=== PATIENT | male | born 1985 | race Caucasian/White ===

== ENCOUNTER 2017-10-31 13:34 | Inpatient (IN) | payer SELFPAY ==
[~2017-10-31] VITALS: Ht 188 cm; Wt 70.2 kg
[2017-10-31] VITALS (7 sets, daily range): BP systolic 105–124; BP diastolic 58–78; PULSE 79–209; RESP 16–20; TEMP 97.4–97.7; O2SAT 95–100
[2017-10-31] MEDS ORDERED: SODIUM CHLOR 0.9% 1000 ML INJ 1,000 ML IV ONE (14:00)
[2017-10-31] MEDS ORDERED: MORPHINE SULFATE 4 MG/ML INJ IV PUSH ONE (14:00)
[2017-10-31 14:40] LABS: AUTOMATED NEUTROPHIL # 17.2 TH/MM3 (1.8-7.7); BASOPHIL % 0.2 % (0.0-2.0); EOSINOPHIL % 0.1 % (0.0-4.0); HEMATOCRIT 41.9 % (39.0-51.0); HEMOGLOBIN 14.3 GM/DL (13.0-17.0); LYMPH % 7.6 % (9.0-44.0); LYMPHOCYTE # 1.5 TH/MM3 (1.0-4.8); MEAN CELL VOLUME 95.7 FL (80.0-100.0); MEAN CORPUSCULAR HEMOGLOBIN 32.7 PG (27.0-34.0); MEAN CORPUSCULAR HGB CONC 34.2 % (32.0-36.0); MEAN PLATELET VOLUME 8.8 FL (7.0-11.0); MONO % 3.9 % (0.0-8.0); MONOCYTE # 0.8 TH/MM3 (0-0.9); NEUT % 88.2 % (16.0-70.0); PLATELET COUNT 298 TH/MM3 (150-450); RED BLOOD COUNT 4.38 MIL/MM3 (4.50-5.90); RED CELL DISTRIBUTION WIDTH 13.4 % (11.6-17.2); WHITE BLOOD COUNT 19.5 TH/MM3 (4.0-11.0)
[2017-10-31 14:54] LABS: INTERNATIONAL NORMALIZED RATIO 1.3 RATIO
[2017-10-31 14:55] LABS: ALBUMIN 3.9 GM/DL (3.4-5.0); ALT (GPT) 102 U/L (12-78); AST (GOT) 150 U/L (15-37); BICARBONATE 26.7 MEQ/L (21.0-32.0); BLOOD UREA NITROGEN 13 MG/DL (7-18); CALCIUM 8.7 MG/DL (8.5-10.1); CHLORIDE 106 MEQ/L (98-107); CREATININE 1.28 MG/DL (0.60-1.30); GLOMERULAR FILTRATION RATE 66 ML/MIN (>89); GLUCOSE,RANDOM 142 MG/DL (74-106); SODIUM (NA) 142 MEQ/L (136-145)
[2017-10-31 14:57] LABS: ALKALINE PHOSPHATASE 97 U/L (45-117); TOTAL BILIRUBIN ADULT 0.6 MG/DL (0.2-1.0); TOTAL PROTEIN 7.5 GM/DL (6.4-8.2)
[2017-10-31] MEDS ORDERED: MIDAZOLAM HCL 5 MG/ML VIAL (1 ML) ONE (15:09)
[2017-10-31] MEDS ORDERED: HYDROmorphone HCL PF 0.5 MG/0.5 ML SYRINGE ONE ×2 (15:10→15:11)
[2017-10-31] MEDS ORDERED: MIDAZOLAM HCL 5 MG/5 ML VIAL IV PUSH ONE (15:15)
[2017-10-31] MEDS ORDERED: HYDROmorphone HCL PF 1 MG/ML VIAL IV PUSH ONE (15:15)
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
[2017-10-31] MEDS ORDERED: LIDOCAINE HCL 1% PF 30 ML VIAL ONE (15:25)
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
[2017-10-31] MEDS ORDERED: IOHEXOL 350 MG/ML 10 ML VIAL (for RAD DIAG) IVCONTRAST ONE (16:20)
[2017-10-31] MEDS ORDERED: ENALAPRILAT 1.25 MG/ML VIAL IV PUSH PRN (16:30)
[2017-10-31] MEDS ORDERED: ACETAMINOPHEN 325 MG TAB PO PRN (16:30)
[2017-10-31] MEDS ORDERED: ONDANSETRON HCL 4 MG/2 ML VIAL IV PUSH PRN (16:30)
[2017-10-31] MEDS ORDERED: NURSING INFORMATION XX SCH (16:30)
[2017-10-31] MEDS ORDERED: MAGNESIUM HYDROXIDE SUSP 30 ML CUP PO PRN (16:30)
[2017-10-31] MEDS ORDERED: SODIUM CHLORIDE 0.9% FLUSH 10 ML FLUSH IV FLUSH PRN (16:30)
[2017-10-31] MEDS ORDERED: CHLORHEXIDINE GLUCONATE 2 % 1 PACK (2 CLOTHS) TOP PRN (16:30)
--- NOTE | 2017-10-31 16:32 | RADRPT ---
EXAM DATE: 10/31/2017 4:11 PM EDT AGE/SEX: 32 years / Male INDICATIONS: Post chest tube placement CLINICAL DATA: This is the patient's subsequent encounter. Patient reports that signs and symptoms h ave been present for 1 day and indicates a pain score of Nonresponsive. MEDICAL/SURGICAL HISTORY: . Non-responsive. COMPARISON: [facility] [place], CHEST SINGLE AP, 10/31/2017. [facility] [place], CT THORAX W CONTRAST, 10/31/2017. . FINDINGS: A left-sided chest tube has been placed and is in good position. There is a miniscule resi dual left-sided pneumothorax measuring 3 mm bilaterally. Left basilar atelectasis and/or infiltrate i s noted. CONCLUSION: 1. Good position of the left-sided chest tube with miniscule residual pneumothorax measuring 3 [address]ally on the left. 2. Left basilar atelectasis and/or infiltrate. Electronically signed by: Lang Cazares MD 10/31/2017 4:31 PM EDT
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
[2017-10-31] MEDS ORDERED: LIDOCAINE HCL 1% 50 ML VIAL INFIL ONE (17:45)
[2017-10-31] MEDS: DIAZEPAM 2 MG TAB PO SCH (17:48)
[2017-10-31] MEDS: IBUPROFEN 800 MG TAB PO SCH (17:49)
[2017-10-31] MEDS: ENOXAPARIN SODIUM 30 MG/0.3 ML SYRINGE SQ SCH (19:29)
[2017-10-31] MEDS: DOCUSATE SODIUM 100 MG CAP PO SCH (19:31)
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
[2017-11-01] VITALS (7 sets, daily range): BP systolic 108–127; BP diastolic 54–79; PULSE 68–85; RESP 18; TEMP 98.2–99.2; O2SAT 99–100
[2017-11-01] MEDS: IBUPROFEN 800 MG TAB PO SCH ×5 (00:25→23:48)
[2017-11-01] MEDS: DIAZEPAM 2 MG TAB PO SCH ×4 (00:25→23:48)
[2017-11-01] MEDS: CHLORHEXIDINE GLUCONATE 2 % 1 PACK (2 CLOTHS) TOP SCH ×2 (02:01→19:39)
--- NOTE | 2017-11-01 06:43 | RADRPT ---
EXAM DATE: 11/01/2017 6:32 AM EDT AGE/SEX: 32 years / Male INDICATIONS: Short of breath, follow up traumatic pneumothorax and chest tube CLINICAL DATA: This is the patient's subsequent encounter. Patient reports that signs and symptoms h ave been present for 3 days and indicates a pain score of 8/10. MEDICAL/SURGICAL HISTORY: . pneumothoraxrib fracturesprior clavicle fractue None. [place] [facility] [place] . FINDINGS: The left chest tube remains in place. No definite pneumothorax is seen. There is mild atelectasis in the left lung base. The right lung is grossly clear. The heart size is stable. No definite pleural ef fusions. CONCLUSION: Left-sided chest tube in place with no definite pneumothorax on today's study. Electronically signed by: Reece Alonso MD 11/01/2017 6:41 AM EDT
[2017-11-01] MEDS ORDERED: MORPHINE SULFATE 4 MG/ML INJ IV PUSH PRN (07:30)
[2017-11-01] MEDS: ENOXAPARIN SODIUM 30 MG/0.3 ML SYRINGE SQ SCH ×2 (10:11→19:45)
[2017-11-01] MEDS: DOCUSATE SODIUM 50 MG/SENNA 8.6 MG TAB PO SCH ×2 (10:12→19:45)
[2017-11-01] MEDS: DOCUSATE SODIUM 100 MG CAP PO SCH ×2 (10:12→19:45)
[2017-11-01 11:23] LABS: AUTOMATED NEUTROPHIL # 6.3 TH/MM3 (1.8-7.7); BASOPHIL % 0.3 % (0.0-2.0); EOSINOPHIL % 0.4 % (0.0-4.0); HEMATOCRIT 37.4 % (39.0-51.0); HEMOGLOBIN 12.7 GM/DL (13.0-17.0); MEAN CELL VOLUME 97.4 FL (80.0-100.0); MEAN CORPUSCULAR HGB CONC 33.9 % (32.0-36.0); MEAN PLATELET VOLUME 8.7 FL (7.0-11.0); MONO % 8.9 % (0.0-8.0); MONOCYTE # 0.7 TH/MM3 (0-0.9); NEUT % 78.4 % (16.0-70.0); PLATELET COUNT 190 TH/MM3 (150-450); RED BLOOD COUNT 3.84 MIL/MM3 (4.50-5.90); RED CELL DISTRIBUTION WIDTH 13.6 % (11.6-17.2); WHITE BLOOD COUNT 8.1 TH/MM3 (4.0-11.0)
[2017-11-01 11:53] LABS: CALCIUM 8.2 MG/DL (8.5-10.1); CREATININE 0.92 MG/DL (0.60-1.30)
[2017-11-01] MEDS: RESP: ALBUTEROL 2.5 MG/IPRATROPIUM 0.5 MG NEB (SCH) NEB ×3 (12:09→19:51)
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
[2017-11-01] MEDS: BACITRACIN TOP OINT 15 GM TUBE TOP SCH ×2 (18:04→19:39)
[2017-11-02] VITALS (7 sets, daily range): BP systolic 108–134; BP diastolic 63–86; PULSE 79–92; RESP 16–18; TEMP 97.2–98.8; O2SAT 95–100
[2017-11-02] MEDS: IBUPROFEN 800 MG TAB PO SCH ×3 (06:33→17:58)
--- NOTE | 2017-11-02 06:57 | RADRPT ---
EXAM DATE: 11/02/2017 6:54 AM EDT AGE/SEX: 32 years / Male INDICATIONS: Short of breath, pain left chest, follow up left side pneumothorax and chest tube CLINICAL DATA: This is the patient's subsequent encounter. Patient reports that signs and symptoms h ave been present for 4 - 6 days and indicates a pain score of 8/10. MEDICAL/SURGICAL HISTORY: . pneumothorax . chest tube [place] [facility] [place] . FINDINGS: Left-sided chest tube is in place. No definite pneumothorax. Right lung is grossly clear. Mild atelec tasis in the left lung base. Heart size is stable. No significant pleural effusions. No significant c hanges compared to the prior study. CONCLUSION: No evidence of pneumothorax. Electronically signed by: Reece Alonso MD 11/02/2017 6:56 AM EDT
[2017-11-02] MEDS: RESP: ALBUTEROL 2.5 MG/IPRATROPIUM 0.5 MG NEB (SCH) NEB ×4 (08:55→19:15)
[2017-11-02] MEDS: DOCUSATE SODIUM 100 MG CAP PO SCH ×2 (09:05→19:40)
[2017-11-02] MEDS: DIAZEPAM 2 MG TAB PO SCH ×2 (09:05→17:58)
[2017-11-02] MEDS: ENOXAPARIN SODIUM 30 MG/0.3 ML SYRINGE SQ SCH ×2 (09:05→19:40)
[2017-11-02] MEDS: DOCUSATE SODIUM 50 MG/SENNA 8.6 MG TAB PO SCH ×2 (09:05→19:40)
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
[2017-11-02] MEDS: BACITRACIN TOP OINT 15 GM TUBE TOP SCH ×2 (17:59→19:40)
[2017-11-02] MEDS: CHLORHEXIDINE GLUCONATE 2 % 1 PACK (2 CLOTHS) TOP SCH (22:26)
[2017-11-03 00:01] VITALS: BP 134/84; PULSE 86; RESP 17; TEMP 98.2; O2SAT 98
[2017-11-03] MEDS: DIAZEPAM 2 MG TAB PO SCH ×2 (01:06→09:16)
[2017-11-03] MEDS: IBUPROFEN 800 MG TAB PO SCH ×3 (01:06→12:35)
[2017-11-03 04:00] VITALS: BP 124/84; PULSE 79; RESP 18; TEMP 97.9; O2SAT 99
--- NOTE | 2017-11-03 07:22 | RADRPT ---
EXAM DATE: 11/03/2017 7:16 AM EDT AGE/SEX: 32 years / Male INDICATIONS: Short of breath. CLINICAL DATA: This is the patient's initial encounter. Patient reports that signs and symptoms have been present for 4 - 6 days and indicates a pain score of 0/10. MEDICAL/SURGICAL HISTORY: . pneumothorax. . chest tube. [place] [facility] [place] . FINDINGS: Mild left base atelectasis again noted. Left chest tube remains in place. No perceptible pneumothorax . Right lung remains clear. Normal, stable heart size. CONCLUSION: No significant change. Chest tube and basilar atelectasis again noted on the left. No pneumothorax. Electronically signed by: Moses Tay MD 11/03/2017 7:21 AM EDT
[2017-11-03] MEDS ORDERED: PERI PO (07:40)
[2017-11-03] MEDS ORDERED: IBUP1TAB7 PO (07:40)
[2017-11-03] MEDS ORDERED: MAGN30S PO (07:40)
[2017-11-03] MEDS ORDERED: LIDO1ADH4 T-DERMAL (07:40)
[2017-11-03 08:00] VITALS: BP 124/67; PULSE 71; RESP 16; TEMP 98.3; O2SAT 99
[2017-11-03] MEDS: RESP: ALBUTEROL 2.5 MG/IPRATROPIUM 0.5 MG NEB (SCH) NEB ×3 (08:49→16:00)
[2017-11-03 08:53] VITALS: O2SAT 98
[2017-11-03] MEDS ORDERED: FAMOTIDINE 20 MG TAB PO SCH (09:00)
[2017-11-03] MEDS: DOCUSATE SODIUM 50 MG/SENNA 8.6 MG TAB PO SCH (09:00)
[2017-11-03] MEDS ORDERED: MAGNESIUM HYDROXIDE SUSP 30 ML CUP PO SCH (09:00)
[2017-11-03] MEDS ORDERED: LIDOCAINE HCL 5% PATCH T-DERMAL SCH (09:00)
[2017-11-03] MEDS: ENOXAPARIN SODIUM 30 MG/0.3 ML SYRINGE SQ SCH (09:16)
[2017-11-03] MEDS: BACITRACIN TOP OINT 15 GM TUBE TOP SCH (09:21)
[2017-11-03 12:00] VITALS: BP 126/84; PULSE 80; RESP 16; TEMP 98.1; O2SAT 98
[2017-11-03] MEDS ORDERED: PERC5TAB12 PO (12:14)
[2017-11-03] MEDS ORDERED: CYCL5TAB PO (12:14)
--- NOTE | 2017-11-03 15:37 | RADRPT ---
EXAM DATE: 11/03/2017 3:33 PM EDT AGE/SEX: 32 years / Male INDICATIONS: F/U rib fx and CT removal CLINICAL DATA: This is the patient's initial encounter. Patient reports that signs and symptoms have been present for 1 day and indicates a pain score of 0/10. MEDICAL/SURGICAL HISTORY: None. None. COMPARISON: [facility] [place]. . FINDINGS: A single AP view of the chest demonstrates the lungs to be symmetrically aerated without evidence of mass, infiltrate or effusion. Left basilar atelectasis. The cardiomediastinal contours are unremarkab le. Osseous structures are intact. No pneumothorax following left chest tube removal. CONCLUSION: No pneumothorax following chest tube removal. Left basilar atelectasis is unchanged. Electronically signed by: Chase Radford MD 11/03/2017 3:36 PM EDT
[2017-11-03 16:00] VITALS: BP 128/91; PULSE 88; RESP 16; TEMP 98.3; O2SAT 97
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
[2017-11-03] MEDS ORDERED: REMOVE OLD LIDOCAINE PATCH T-DERMAL SCH (21:00)
== END 2017-11-03 17:07 | disposition home or self-care (01) | DRG 200 ==
LOC: NEPE 13:34 → NEDA 16:20 → N06B 17:40
PROVIDERS: ADMIT Surgery; ATTEND Surgery
PROC: 0W9B30Z Drainage of Left Pleural Cavity with Drainage Device, Percutaneous Approach (ICD-10-PCS; principal; 2017-10-31)
DX: S27.0XXA Traumatic pneumothorax, initial encounter (principal); S22.42XA Multiple fractures of ribs, left side, initial encounter for closed fracture; S22.070A Wedge compression fracture of T9-T10 vertebra, initial encounter for closed fracture; S32.019A Unspecified fracture of first lumbar vertebra, initial encounter for closed fracture; S32.029A Unspecified fracture of second lumbar vertebra, initial encounter for closed fracture; S32.039A Unspecified fracture of third lumbar vertebra, initial encounter for closed fracture; S32.049A Unspecified fracture of fourth lumbar vertebra, initial encounter for closed fracture; S27.321A Contusion of lung, unilateral, initial encounter; V29.9XXA Motorcycle rider (driver) (passenger) injured in unspecified traffic accident, initial encounter; S06.0X0A Concussion without loss of consciousness, initial encounter
CPT/HCPCS: 32551; 70450; 71045; 71260; 72125; 74177; 80048; 80053; 85025; 85610; 85730; 86850; 86900; 86901; 87641; 94150; 94640; 94664; 94667; 94668; 96361; 96374; J1170; J1650; J2250; J2270; J7030; Q9967